=== PATIENT | male | born 1990 | race Caucasian/White ===

== ENCOUNTER 2020-12-09 12:59 | Emergency (ER) | payer MEDICAID ==
[~2020-12-09] VITALS: Ht 177.8 cm; Wt 69.9 kg
--- NOTE | 2020-12-09 13:30 | NUR ---
Lunch served- ate 100%
[2020-12-09 13:43] LABS: BASOPHILS % (AUTO) 0.2 % (0.0-2.0); HEMATOCRIT 49 % (39-51); HEMOGLOBIN 16.8 g/dL (13.5-17.5); LYMPHOCYTES # (AUTO) 1.5 /CMM (0.8-4.8); LYMPHOCYTES % (AUTO) 11.1 % (20.0-44.0); MEAN CORPUSCULAR HGB CONC 34 g/dl (31.0-36.0); MEAN CORPUSCULAR VOLUME 83 fL (80-96); MONOCYTES % (AUTO) 7.1 % (2.0-12.0); NEUTROPHILS % (AUTO) 81.6 % (43.0-81.0); PLATELET COUNT (AUTO) 377 /CMM (150-450); RED BLOOD CELL COUNT(AUTO) 5.98 MIL/uL (4.5-6.0); WHITE BLOOD COUNT (AUTO) 13.5 K/uL (4.3-11.0)
[2020-12-09 13:58] LABS: CALCIUM, SERUM 8.9 mg/dL (8.5-10.1); CARBON DIOXIDE 25 mmol/L (21-32); CHLORIDE 98 mmol/L (98-107); GLUCOSE 175 mg/dL (74-106); POTASSIUM 3.1 mmol/L (3.5-5.1); SODIUM SERUM 136 mmol/L (136-145); UREA NITROGEN, BLOOD 22 mg/dL (7-18)
--- NOTE | 2020-12-09 14:00 | NUR ---
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
[2020-12-09 14:39] LABS: ALANINE AMINOTRANSFERASE 20 U/L (12-78); ALBUMIN 4.3 g/dL (3.4-5.0); ALCOHOL, BLOOD < 3 mg/dL (0-0); ALKALINE PHOSPHATASE 72 U/L (46-116); ASPARTATE AMINOTRANSFERASE 17 U/L (15-37); BILIRUBIN,DIRECT 0.3 mg/dL (0.0-0.2); BILIRUBIN,TOTAL 1.5 mg/dL (0.2-1.0); TOTAL PROTEIN, SERUM 8.4 g/dL (6.4-8.2)
[2020-12-09 14:41] LABS: ACETAMINOPHEN 0 ug/ml (10-30)
[2020-12-09] MEDS ORDERED: POTASSIUM CHLORIDE 20 MEQ TAB.PRT.SR PO ONE (15:38)
[2020-12-09] MEDS: POTASSIUM CHLORIDE 20 MEQ TAB.PRT.SR PO ONE (15:42)
--- NOTE | 2020-12-09 15:43 | NUR ---
Pt admiots to using fentanyl "have not used last couple of days". Uncooperative and refused vitals
[2020-12-09] MEDS ORDERED: HALOPERIDOL LACTATE INJ 5 MG/ML VIAL ONE (16:32)
[2020-12-09] MEDS: HALOPERIDOL LACTATE INJ 5 MG/ML VIAL IM ONE (16:52)
--- NOTE | 2020-12-09 19:57 | NUR ---
covid swab sent to lab
[2020-12-09 20:28] LABS: BILIRUBIN,URINE MODERATE (NEGATIVE); COLOR,URINE YELLOW (YELLOW); LEUKOCYTE ESTERASE ,URINE NEGATIVE (NEGATIVE); NITRITE, URINE NEGATIVE (NEGATIVE); PH,URINE 6.5 (5.0-8.0); PROTEIN,URINE TRACE mg/dl (NEGATIVE); UGLUCOSE NEGATIVE (NEGATIVE)
[2020-12-09 20:34] LABS: BACTERIA,URINE 1+ /HPF (None Seen); SQUAMOUS EPITHELIAL CELL,UR Few /HPF (None Seen); WBC,URINE 0-2 /HPF (0-3)
--- NOTE | 2020-12-09 21:16 | NUR ---
LAB CALLED REGARDING NEGATIVE COVID RESULT.
--- NOTE | 2020-12-09 23:06 | NUR ---
CLINICAL AND FACESHEET FAXED TO [facility] INTAKE FOR VOLUNTARY PSYCH ADMISSION
--- NOTE | 2020-12-10 01:42 | NUR ---
PT AWAKE IN BED, PROVIDED WITH WATER.
--- NOTE | 2020-12-10 03:41 | NUR ---
PT ASLEEP, REMAINS ON MONITOR.
--- NOTE | 2020-12-10 06:42 | NUR ---
PT AWAKE IN BED, CALLED FOR BREAKFAST.
--- NOTE | 2020-12-10 06:47 | NUR ---
JUWAN MITCHELL SENIOR TELECOMMUNICATIONS TECHNICIAN AT BEDSIDE TO PSYCH EVAL.
[2020-12-10] MEDS: ACETAMINOPHEN 325 MG TABLET PO ONE (07:45)
--- NOTE | 2020-12-10 07:49 | NUR ---
received a call from Dick Sams (father) and stated he is in [place] right now and informed about patient was cleared by psych clinician and ready for discharge.
[2020-12-10] MEDS ORDERED: ACETAMINOPHEN ES 500 MG TABLET ONE (08:02)
--- NOTE | 2020-12-10 08:07 | NUR ---
CALLED PT BROTHER ROBERTO AND LEFT A MESSAGE [phone]
--- NOTE | 2020-12-10 08:13 | NUR ---
PT SLEEPING VSS CONT TO MONITOR
--- NOTE | 2020-12-10 08:25 | NUR ---
PT IS CLEARED FOR DISCHARGED. PT STATED HE IS NOT SUICIDAL AND WANTS TO GO BACK TO HIS BROTHER IN [place].
--- NOTE | 2020-12-10 08:26 | NUR ---
Patient given written and verbal discharge instructions. Patient verbalizes understanding of instructions. Patient is ambulatory with steady gait. Refuses offer of jail placement. Patient given list of available shelters in surrounding area.
[2020-12-10 08:27] VITALS: BP 135/84
== END 2020-12-10 08:31 | disposition home or self-care (01) ==
LOC: ER 13:09
DX: R45.851 Suicidal ideations (principal); Z59.0 Homelessness; F32.9 Major depressive disorder, single episode, unspecified; F41.9 Anxiety disorder, unspecified; E87.6 Hypokalemia; R31.9 Hematuria, unspecified; Z20.822 Contact with and (suspected) exposure to COVID-19
CPT/HCPCS: 36415; 80048; 80076; 80299; 80307; 80320; 81001; 85025; 87426; 96372; 99285; C9803; J1630; G0480